=== PATIENT | male | born 1965 | race Caucasian/White ===

== ENCOUNTER → 2025-03-23 08:59 | Outpatient (CLI) | payer MEDICARE, SELFPAY ==
--- NOTE | 2025-03-23 09:02 | DI.MRI.S_ITS ---
PROCEDURE: MR THORACIC SPINE WO CON INDICATIONS: ble weakness; pain TECHNIQUE: Noncontrast sagittal T1 spine echo and T2 fast spin echo, sagittal STIR, and T2 fast spin echo through the thoracic spine. COMPARISON: [facility], CR, XR LUMBAR SPINE WITH FLEXION EXTENSION 5 VIEWS, 03/14/2025, 7:09. Outside Film, MR, MR LUMBAR SPINE WITHOUT CONTRAST, 10/20/2024, 8:42. [facility], CT, CT CERVICAL SPINE WITHOUT CONTRAST, 03/16/2025, 8:09. FINDINGS: Image quality: Excellent. Alignment and Curvature: Accentuated thoracic kyphosis is seen. No focal AP alignment abnormality is seen. There is mild artifact associated with the thoracic spine stimulator wires. Bone Marrow: Marrow is of normal overall signal. No acute vertebral body compression fractures. A few levels of mild anterior wedge deformity can be seen within the mid thoracic spine. Spinal Cord: Visualized spinal cord is normal in size and signal. Paraspinous Soft Tissues: No paravertebral masses. Miscellaneous: Lower cervical spine degenerative changes are seen, with C5-C6 fusion and focal C6-C7 degenerative change. At the T6-T7 level, there is a mild central disc protrusion, with mild central canal narrowing and minimal mass effect upon the ventral spinal cord. Minimal generalized disc bulge can be seen at the T7-T8 level, with minimal central canal narrowing. At the T8-T9 level, there is a mild central/left disc protrusion, with hypertrophy of the posterior elements also seen at this level. There is mild central canal narrowing. A few levels of mild neural foraminal narrowing can be seen within the mid to lower thoracic spine. IMPRESSION: Multiple levels of mild thoracic spine degenerative change can be seen. Thoracic spine stimulator wires present. Dictated by: Herbert Raman M.D. on 03/23/2025 at 13:17 Approved by: Herbert Raman M.D. on 03/23/2025 at 13:21
== END ==
LOC: MRI 09:01
PROVIDERS: PCP Student in an Organized Health Care Education/Training Program; Referring Provider Physician Assistant Surgical; Visit Provider Physician Assistant Surgical
DX: M51.14 Intervertebral disc disorders with radiculopathy, thoracic region (principal); R29.898 Other symptoms and signs involving the musculoskeletal system; Z96.82 Presence of neurostimulator
CPT/HCPCS: 72146

== ENCOUNTER → 2025-03-27 07:59 | Outpatient (CLI) | payer MEDICARE, SELFPAY ==
--- NOTE | 2025-03-27 08:01 | DI.MRI.S_ITS ---
PROCEDURE: MR LUMBAR SPINE WO CON INDICATIONS: ABLE WEAKNESS; PAIN TECHNIQUE: Noncontrast sagittal T1 spin echo and T2 fast echo, sagittal STIR, and T2 fast spin echo through the lumbar spine. In cases with scoliosis, additional coronal T2 fast spin echo may be performed. COMPARISON: [facility], CR, XR LUMBAR SPINE WITH FLEXION EXTENSION 5 VIEWS, 03/14/2025, 7:09. Outside Film, MR, MR LUMBAR SPINE WITHOUT CONTRAST, 10/20/2024, 8:42. FINDINGS: Image quality: Excellent. Alignment and Curvature: There is normal bony alignment. Bones: L3-L4 and L4-L5 interspinous fixation hardware. Mixed Modic type 1-2 reactive endplate changes adjacent to the L5-S1 disc. No acute vertebral body compression fractures. Spinal Cord: Conus medullaris terminates at the L1 level. Visualized cord demonstrates normal signal and size. Paraspinous Soft Tissues: No paravertebral masses. Artifact in the bowel posterior paraspinous soft tissues related to neurostimulator. T12-L1: Normal appearance. L1-L2: Normal appearance. L2-L3: Loss of disc signal. Mild, diffuse disc bulge. No central stenosis. No neural foraminal narrowing. No neural compression. L3-L4: Loss of disc signal. Moderate, diffuse disc bulge. Mild narrowing of the central canal. Mild bilateral neural foraminal narrowing. No neural compression. Fissures in the anterior annulus. L4-L5: Loss of disc signal and height. Moderate, diffuse disc bulge. Mild bilateral facet hypertrophy. Mild narrowing of the central canal. Mild right and [id number] left neural foraminal narrowing. No neural compression. L5-S1: Loss of disc signal and height. Mild, diffuse disc bulge. Mild bilateral facet hypertrophy. No central stenosis. Moderate right and [id number] left neural foraminal narrowing. No neural compression. IMPRESSION: Multilevel degenerative disc disease. Multilevel facet arthropathy. No severe central canal stenosis. No severe neural foraminal stenosis. No neural compression. Dictated by: Maria Del Carmen Hernandez MD, PhD on 03/27/2025 at 13:07 Approved by: Maria Del Carmen Hernandez MD, PhD on 03/27/2025 at 13:11
== END ==
PROVIDERS: PCP Student in an Organized Health Care Education/Training Program; Referring Provider Student in an Organized Health Care Education/Training Program; Visit Provider Physician Assistant Surgical
DX: M51.369 Other intervertebral disc degeneration, lumbar region without mention of lumbar back pain or lower extremity pain (principal); M51.379 Other intervertebral disc degeneration, lumbosacral region without mention of lumbar back pain or lower extremity pain; M47.816 Spondylosis without myelopathy or radiculopathy, lumbar region; M47.817 Spondylosis without myelopathy or radiculopathy, lumbosacral region; R29.898 Other symptoms and signs involving the musculoskeletal system
CPT/HCPCS: 72148